=== PATIENT | male | born 1955 | race Caucasian/White ===

== ENCOUNTER 2022-05-27 13:13 | Outpatient (REF) | payer OTHER, SELFPAY ==
--- NOTE | 2022-05-27 13:25 | ECG_ITS ---
Test Reason : f33.2 Blood Pressure : / mmHG Vent. Rate : 070 BPM Atrial Rate : 070 BPM P-R Int : 200 ms QRS Dur : 086 ms QT Int : 386 ms P-R-T Axes : 052 013 000 degrees QTc Int : 416 ms Normal sinus rhythm Inferior infarct , age undetermined Abnormal ECG No previous ECGs available Referred By: Vinny Padron Electronically Signed By:STACY WASHINGTON
[2022-05-27 13:28] LABS: MANUAL DIFF FLAG NO
[2022-05-27 13:56] LABS: Basophils Percent Auto 0.5 % (0-2); Eosinophils Absolute Auto 0.1 X10*3/uL (0.0-0.4); Eosinophils Percent Auto 0.9 % (0-4); Hematocrit 45.9 % (42.0-52.0); Hemoglobin 15.6 g/dl (14.0-18.0); Imm Gran Abs Auto 0.02 X10*3/uL (0.00-0.03); Imm Gran Pct Auto 0.4 % (0.0-0.4); Lymphocytes Absolute Auto 1.6 X10*3/uL (1.2-4.9); Lymphocytes Percent Auto 28.1 % (20-40); Mean Corpuscular Hemoglobin 30.4 pg (27.0-33.0); Mean Corpuscular Volume 89.3 fL (80.0-98.0); Mean Platelet Volume 10.2 fL (9.4-12.4); Monocytes Absolute Auto 0.5 X10*3/uL (0.1-1.2); Monocytes Percent Auto 8.4 % (2-11); Neutrophils Absolute Auto 3.5 x10*3/uL (2.0-8.3); Neutrophils Percent Auto 61.7 % (45-73); Platelet Count 242 X10*3/uL (160-400); Red Blood Count 5.14 X10*6/uL (4.60-5.80); Red Cell Distribution Width 13.1 % (11.0-16.0); White Blood Count 5.6 X10*3/uL (4.8-10.8)
[2022-05-27 14:15] LABS: Alanine Aminotransferase 28 U/L (0-40); Albumin Level 4.2 g/dL (3.5-5.0); Alkaline Phosphatase 107 U/L (39-117); Anion Gap 16 (12-20); Aspartate Amino Transferase 21 U/L (5-37); Bilirubin Total 0.4 mg/dL (0.0-1.0); Blood Urea Nitrogen 13 mg/dL (9-16); Calcium 9.3 mg/dL (8.4-10.2); Carbon Dioxide 24 mmol/L (22-29); Chloride 105 mmol/L (96-108); Estimated Glomerular Filt Rate > 60; Glucose Random 89 mg/dL (60-115); Potassium 4.5 mmol/L (3.3-5.1); Sodium 140 mmol/L (135-145); Total Protein 7.3 g/dL (6.5-8.0)
[2022-05-27 14:35] LABS: Thyroid Stimulating Hormone 4.07 uIU/mL (0.32-4.0)
[2022-05-27 14:49] LABS: Folate 6.3 ng/mL (> or = 4.0); Vitamin B12 269 pg/mL (200-900)
== END 2022-05-27 13:14 | disposition home or self-care (01) ==
LOC: HO.LAB 13:13
PROVIDERS: PCP Family Medicine; Visit Provider Psychiatry & Neurology Psychiatry
DX: Z01.818 Encounter for other preprocedural examination (principal); F33.2 Major depressive disorder, recurrent severe without psychotic features
CPT/HCPCS: 36415; 80053; 82607; 82746; 84443; 85025; 93005

== ENCOUNTER 2022-06-17 05:59 | Day surgery (SDC) | payer OTHER, SELFPAY ==
[2022-06-17 06:45] LABS: COVID-19 Test Negative (Negative); IDNOW Serial# 16C4AD1C
[2022-06-17 06:58] VITALS: BP 130/77; PULSE 59; RESP 17; TEMP 36.4; O2SAT 98; BMI 37.5
--- NOTE | 2022-06-17 07:02 | P.CONAN_ITS ---
FORMERLY [facility], [facility] Past Medical History Medical History (Updated 06/16/22 @ 15:19 by Isis Eng RN) Coronary arteriosclerosis Deep vein thrombosis Diastolic dysfunction Hyperlipidemia Inflammatory spondylopathy Malignant melanoma Moderate recurrent major depression Morbid obesity Myocardial infarction Peripheral venous insufficiency Prediabetes Pulmonary embolism Resting tremor Tobacco abuse Family History Family history of problems with anesthesia: No Surgical History Surgical History (Updated 06/16/22 @ 15:22 by Isis Eng RN) H/O colonoscopy H/O hernia repair History of Problems with Anesthesia: No Social History Social History Advance Directives: No Advance Directives Information Provided: Yes Meds Allergies Allergy/AdvReac Type Severity Reaction Status Date / Time rosuvastatin [From Crestor] AdvReac Muscle Pain Verified 06/16/22 15:15 Home Medications Medication Instructions Recorded Confirmed Last Taken Type bupropion HCl 300 mg 24 hr tablet, 1 tab PO DAILY 06/16/22 06/16/22 Unknown History extended release citalopram 20 mg tablet 1.5 tab PO DAILY 06/16/22 06/16/22 Unknown History gabapentin 300 mg capsule 300 mg PO BEDTIME 06/16/22 06/16/22 Unknown History Exam Exam Date and Time: June 17, 2022 0702 Height,Weight and Vital Signs: Height 6 ft 3 in Weight 136.078 kg Last Vital Signs Temp 97.5 F 06/17/22 06:58 Pulse 59 06/17/22 06:58 Resp 17 06/17/22 06:58 BP 130/77 06/17/22 06:58 Pulse Ox 98 06/17/22 06:58 O2 Del Method 06/17/22 06:58 Pertinent Lab Results Pertinent Lab Results: Laboratory Tests 06/17/22 06:20 COVID-19 ([facility]) Negative COVID-19 Clin Com See Note Airway Mallampati Class: III (Narrow palate) TM Dist: >3cm Neck ROM: Full Heart: rrr Lungs: cta Assessment and Plan Assessment Anesthesia Assessment: Anesthesia Plan Discussed and Chart Reviewed Final Anesthetic Review Family History of Problems with Anesthesia: No History of Problems with Anesthesia: No NPO: Yes ASA Class: III Final Preanesthetic Review: No Changes in Pt Med Stat, Meds/Allgs Chart Reviewed and Consent Obtained/Reviewed Patient Risk: Intermediate Procedure Risk: Intermediate Anesthetic Plan Anesthetic Plan: GA Disposition: Standard PACU
--- NOTE | 2022-06-17 08:00 | MHC.SHP ---
Pre-Procedural Eval Section A Date of Service: 06/17/22 Changes since office visit: Yes Patient answered all questions; No Cold of Flu in the past 2 weeks, No New Medical Problems and No Changes in Medication The History & Physical has been completed within 30 days and I have reviewed it.: Yes Section B Chief Complaint: depression Allergies: Allergies Allergy/AdvReac Type Severity Reaction Status Date / Time rosuvastatin [From Crestor] AdvReac Muscle Pain Verified 06/16/22 15:15 Plan I have reviewed the history and physical and performed a pertinent physical examination on my patient. No changes have occurred unless specified.
--- NOTE | 2022-06-17 08:23 | HO.ECTPROC ---
ECT Procedure Note Diagnosis/Treatment Date of Service: 06/17/22 Diagnosis: Major Depressive Disorder Current Treatment Number: 1 Treatment: Series Interval Clinical Notes: Patient eager to have ECT seems and more relaxed spirits ECT Settings Device: THYMATRON DGx Energy Percent: 100 Seizure Duration By EEG (in seconds): 50 Medications Administration General Anesthetic: Etomidate (18) Muscle Relaxant: Succinylcholine Ancillary Medications Analgesics: Torodol - Pre ECT
--- NOTE | 2022-06-17 08:27 | ECG_ITS ---
Test Reason : htn pvc Blood Pressure : / mmHG Vent. Rate : 093 BPM Atrial Rate : 093 BPM P-R Int : 218 ms QRS Dur : 096 ms QT Int : 354 ms P-R-T Axes : 056 009 -03 degrees QTc Int : 440 ms Sinus rhythm with 1st degree A-V block Inferior infarct (cited on or before 27-MAY-2022) Abnormal ECG When compared with ECG of 27-MAY-2022 13:35, MI interval has increased Referred By: Tapan Jacobo Electronically Signed By:STACY WASHINGTON
[2022-06-17 08:30] VITALS: BP 150/90; PULSE 92; RESP 16; TEMP 36.9; O2SAT 94
[2022-06-17 08:35] VITALS: BP 133/85; PULSE 89; RESP 16; O2SAT 96
[2022-06-17 08:45] VITALS: BP 139/91; PULSE 87; RESP 14; O2SAT 96
[2022-06-17 09:00] VITALS: BP 144/93; PULSE 92; RESP 12; O2SAT 96
[2022-06-17 09:15] VITALS: BP 123/75; PULSE 80; RESP 16; TEMP 36.2; O2SAT 95
== END 2022-06-17 09:33 | disposition home or self-care (01) ==
PROVIDERS: PCP Family Medicine; Visit Provider Psychiatry & Neurology Psychiatry
PROC: (CPT 90870; principal; 2022-06-17 14:30)
DX: F33.3 Major depressive disorder, recurrent, severe with psychotic symptoms (principal); I25.10 Atherosclerotic heart disease of native coronary artery without angina pectoris; I10 Essential (primary) hypertension; E78.5 Hyperlipidemia, unspecified; R60.9 Edema, unspecified; Z86.718 Personal history of other venous thrombosis and embolism; Z79.01 Long term (current) use of anticoagulants; Z79.899 Other long term (current) drug therapy; Z88.8 Allergy status to other drugs, medicaments and biological substances; F17.210 Nicotine dependence, cigarettes, uncomplicated; Z20.822 Contact with and (suspected) exposure to COVID-19
CPT/HCPCS: 87635; 90870; 93005; J0330; J1885; J2405

== ENCOUNTER 2022-06-19 07:50 | Day surgery (SDC) | payer OTHER, SELFPAY ==
[2022-06-19] VITALS (7 sets, daily range): BP systolic 113–150; BP diastolic 79–87; PULSE 62–82; RESP 14–20; TEMP 36.1–36.2; O2SAT 92–98; BMI 38.1
--- NOTE | 2022-06-19 08:51 | P.CONAN_ITS ---
[facility] Past Medical History Medical History Coronary arteriosclerosis Deep vein thrombosis Diastolic dysfunction Hyperlipidemia Inflammatory spondylopathy Malignant melanoma Moderate recurrent major depression Morbid obesity Myocardial infarction Peripheral venous insufficiency Prediabetes Pulmonary embolism Resting tremor Tobacco abuse Family History Family history of problems with anesthesia: No Surgical History Surgical History H/O colonoscopy H/O hernia repair History of Problems with Anesthesia: No Social History Social History Patient Tobacco Use Status: Current everyday Tobacco user Advance Directives: No Advance Directives Information Provided: Yes Meds Allergies Allergy/AdvReac Type Severity Reaction Status Date / Time rosuvastatin [From Crestor] AdvReac Muscle Pain Verified 06/16/22 15:15 Home Medications Medication Instructions Recorded Confirmed Last Taken Type bupropion HCl 300 mg 24 hr tablet, 1 tab PO DAILY 06/16/22 06/16/22 Unknown H istory extended release citalopram 20 mg tablet 1.5 tab PO DAILY 06/16/22 06/16/22 Unknown History gabapentin 300 mg capsule 300 mg PO BEDTIME 06/16/22 06/16/22 Unknown History Exam Exam Date and Time: June 19, 2022 0851 Height,Weight and Vital Signs: Height 6 ft 3 in Weight 138.346 kg Last Vital Signs Temp 97.1 F 06/19/22 08:19 Pulse 62 06/19/22 08:19 Resp 18 06/19/22 08:19 BP 150/79 H 06/19/22 08:19 Pulse Ox 98 06/19/22 08:19 O2 Del Method 06/19/22 08:19 Airway Mallampati Class: III TM Dist: >3cm Neck ROM: Limited Loose/Missing/Broken Teeth: No Heart: RRR Lungs: CTA Assessment and Plan Assessment Anesthesia Assessment: Anesthesia Plan Discussed Final Anesthetic Review Family History of Problems with Anesthesia: No History of Problems with Anesthesia: No NPO: Yes ASA Class: III Final Preanesthetic Review: Meds/Allgs Chart Reviewed, Consent Obtained/Reviewed and Anes Risks/Benef Reviewed Patient Risk: Intermediate Procedure Risk: Intermediate Anesthetic Plan Anesthetic Plan: GA Disposition: Standard PACU
[2022-06-19 08:52] LABS: COVID-19 Test Negative (Negative)
--- NOTE | 2022-06-19 09:32 | MHC.SHP ---
Pre-Procedural Eval Section A Date of Service: 06/19/22 The patient is an INPATIENT: No Changes since office visit: Yes Cold of Flu in the past 2 weeks, Yes New Medical Problems, Yes Changes in Medication and Yes Patient answered all questions The History & Physical has been completed within 30 days and I have reviewed it.: Yes Section B Chief Complaint: depression Allergies: Allergies Allergy/AdvReac Type Severity Reaction Status Date / Time rosuvastatin [From Crestor] AdvReac Muscle Pain Verified 06/16/22 15:15 Plan I have reviewed the history and physical and performed a pertinent physical examination on my patient. No changes have occurred unless specified.
--- NOTE | 2022-06-19 09:53 | HO.ECTPROC ---
ECT Procedure Note Diagnosis/Treatment Date of Service: 06/19/22 Diagnosis: Major Depressive Disorder Previous ECT Date: 06/17/22 Current Treatment Number: 2 Treatment: Series Interval Clinical Notes: The patient reported mild improvement of dysphoria after ECT yesterday. Today, he denies new symptoms, only mild headache after ECT. ECT Settings Device: THYMATRON DGx Electrode Placement: Right Unilateral Program/Pulse Width: 0.25 Energy Percent: 100 Seizure Duration By EEG (in seconds): 20 Medications Administration General Anesthetic: Etomidate Muscle Relaxant: Succinylcholine (120) Ancillary Medications Analgesics: Torodol - Pre ECT Anti-emetics: Zofran - Pre ECT Airway Management Airway Management: LMA Treatment Recommendations No Changes Recommended: No change Pt Tolerated Procedure w/o Issue: Yes
== END 2022-06-19 11:29 | disposition home or self-care (01) ==
LOC: HO.SSS 11:27
PROVIDERS: PCP Family Medicine; Visit Provider Psychiatry & Neurology Psychiatry
PROC: (CPT 90870; principal; 2022-06-19 10:00)
DX: F33.1 Major depressive disorder, recurrent, moderate (principal); I25.10 Atherosclerotic heart disease of native coronary artery without angina pectoris; I25.2 Old myocardial infarction; R73.03 Prediabetes; E66.01 Morbid (severe) obesity due to excess calories; Z79.899 Other long term (current) drug therapy; Z88.8 Allergy status to other drugs, medicaments and biological substances; Z72.0 Tobacco use; Z20.822 Contact with and (suspected) exposure to COVID-19
CPT/HCPCS: 87635; 90870

== ENCOUNTER 2022-06-19 07:53 | Day surgery (SDC) | payer OTHER, SELFPAY ==
[2022-06-22] VITALS (7 sets, daily range): BP systolic 107–165; BP diastolic 56–100; PULSE 68–95; RESP 16–22; TEMP 36.1–36.4; O2SAT 96–100; BMI 37.5
[2022-06-22 06:43] LABS: COVID-19 Test Negative (Negative)
--- NOTE | 2022-06-22 06:53 | HO.ANESPROP2 ---
FORMERLY [facility] Past Medical History Medical History Coronary arteriosclerosis Deep vein thrombosis Diastolic dysfunction Hyperlipidemia Inflammatory spondylopathy Malignant melanoma Moderate recurrent major depression Morbid obesity Myocardial infarction Peripheral venous insufficiency Prediabetes Pulmonary embolism Resting tremor Tobacco abuse Family History Family history of problems with anesthesia: No Surgical History Surgical History H/O colonoscopy H/O hernia repair History of Problems with Anesthesia: No Social History Social History Patient Tobacco Use Status: Current everyday Tobacco user Advance Directives: No Advance Directives Information Provided: Yes Meds Allergies Allergy/AdvReac Type Severity Reaction Status Date / Time rosuvastatin [From Crestor] AdvReac Muscle Pain Verified 06/16/22 15:15 Home Medications Medication Instructions Recorded Confirmed Last Taken Type bupropion HCl 300 mg 24 hr tablet, 1 tab PO DAILY 06/16/22 06/16/22 Unknown History extended release citalopram 20 mg tablet 1.5 tab PO DAILY 06/16/22 06/16/22 Unknown History gabapentin 300 mg capsule 300 mg PO BEDTIME 06/16/22 06/16/22 Unknown History Exam Exam Date and Time: June 22, 2022 0653 Height,Weight and Vital Signs: Height 6 ft 3 in Weight 136.078 kg Last Vital Signs Temp 97 F 06/22/22 06:39 Pulse 68 06/22/22 06:39 Resp 18 06/22/22 06:39 BP 130/81 06/22/22 06:39 Pulse Ox 98 06/22/22 06:39 O2 Del Method 06/22/22 06:39 Pertinent Lab Results Pertinent Lab Results: Laboratory Tests 06/22/22 06:18 COVID-19 ([facility]) Negative COVID-19 Clin Com See Note Airway Mallampati Class: III (Some caps location unknown) TM Dist: >3cm Neck ROM: Full Heart: rrr Lungs: cta Assessment and Plan Assessment Anesthesia Assessment: Anesthesia Plan Discussed and Chart Reviewed Final Anesthetic Review Family History of Problems with Anesthesia: No History of Problems with Anesthesia: No NPO: Yes ASA Class: III Final Preanesthetic Review: No Changes in Pt Med Stat, Meds/Allgs Chart Reviewed and Consent Obtained/Reviewed Patient Risk: Intermediate Procedure Risk: Intermediate Anesthetic Plan Anesthetic Plan: GA Disposition: Standard PACU
--- NOTE | 2022-06-22 07:18 | MHC.SHP ---
Pre-Procedural Eval Section A Date of Service: 06/22/22 The patient is an INPATIENT: No Changes since office visit: No Cold of Flu in the past 2 weeks, No New Medical Problems, No Changes in Medication and No Patient answered all questions The History & Physical has been completed within 30 days and I have reviewed it.: Yes Section B Chief Complaint: depression Allergies: Allergies Allergy/AdvReac Type Severity Reaction Status Date / Time rosuvastatin [From Crestor] AdvReac Muscle Pain Verified 06/16/22 15:15 Plan I have reviewed the history and physical and performed a pertinent physical examination on my patient. No changes have occurred unless specified.
--- NOTE | 2022-06-22 07:34 | HO.ECTPROC ---
ECT Procedure Note Diagnosis/Treatment Date of Service: 06/22/22 Diagnosis: Major Depressive Disorder Previous ECT Date: 06/19/22 Current Treatment Number: 3 Treatment: Series Interval Clinical Notes: The patient has not noticed any changes on his mental status after the ECT of Wednesday. He denies headaches after the last ECT. his psychiatrist noticed involuntary tremors on right hand for the last months, it does not seems to worse, could be benign tremors, we will ask Neurology ECT Settings Device: THYMATRON DGx Electrode Placement: Right Unilateral Program/Pulse Width: 0.50 Energy Percent: 100 Seizure Duration By EEG (in seconds): 55 By Motor Observation (in seconds): 35 Medications Administration General Anesthetic: Etomidate Muscle Relaxant: Succinylcholine (120) Ancillary Medications Analgesics: Torodol - Pre ECT Anti-emetics: Zofran - Pre ECT Miscillaneous Medications: Propofol Airway Management Airway Management: Bag Mask Ventilation Treatment Recommendations No Changes Recommended: No change Notes: The patient desaturated last ECT but now, no problems Pt Tolerated Procedure w/o Issue: Yes
== END 2022-06-22 09:09 | disposition home or self-care (01) ==
PROVIDERS: PCP Family Medicine; Visit Provider Psychiatry & Neurology Psychiatry
PROC: (CPT 90870; principal; 2022-06-22 07:00)
DX: F33.1 Major depressive disorder, recurrent, moderate (principal); R25.1 Tremor, unspecified; I25.10 Atherosclerotic heart disease of native coronary artery without angina pectoris; I10 Essential (primary) hypertension; E78.5 Hyperlipidemia, unspecified; R60.0 Localized edema; I86.8 Varicose veins of other specified sites; Z86.718 Personal history of other venous thrombosis and embolism; Z79.01 Long term (current) use of anticoagulants; Z79.82 Long term (current) use of aspirin; Z79.899 Other long term (current) drug therapy; Z88.8 Allergy status to other drugs, medicaments and biological substances; Z20.822 Contact with and (suspected) exposure to COVID-19
CPT/HCPCS: 87635; 90870; J0330; J1885; J2250; J2405

== ENCOUNTER 2022-06-24 05:58 | Day surgery (SDC) | payer OTHER, SELFPAY ==
[2022-06-24] VITALS (7 sets, daily range): BP systolic 104–134; BP diastolic 57–107; PULSE 73–101; RESP 12–20; TEMP 36.6–36.9; O2SAT 94–98; BMI 37.5
--- NOTE | 2022-06-24 06:40 | HO.ANESPROP2 ---
[facility] Past Medical History Medical History Coronary arteriosclerosis Deep vein thrombosis Diastolic dysfunction Hyperlipidemia Inflammatory spondylopathy Malignant melanoma Moderate recurrent major depression Morbid obesity Myocardial infarction Peripheral venous insufficiency Prediabetes Pulmonary embolism Resting tremor Tobacco abuse Family History Family history of problems with anesthesia: No Surgical History Surgical History H/O colonoscopy H/O hernia repair History of Problems with Anesthesia: No Social History Social History Patient Tobacco Use Status: Current everyday Tobacco user Advance Directives: No Advance Directives Information Provided: Yes Meds Allergies Allergy/AdvReac Type Severity Reaction Status Date / Time rosuvastatin [From Crestor] AdvReac Muscle Pain Verified 06/16/22 15:15 Home Medications Medication Instructions Recorded Confirmed Last Taken Type bupropion HCl 300 mg 24 hr tablet, 1 tab PO DAILY 06/16/22 06/16/22 Unknown History extended release citalopram 20 mg tablet 1.5 tab PO DAILY 06/16/22 06/16/22 Unknown History gabapentin 300 mg capsule 300 mg PO BEDTIME 06/16/22 06/16/22 Unknown History Exam Exam Date and Time: June 24, 2022 0640 Airway Mallampati Class: III TM Dist: >3cm Neck ROM: Full Heart: rrr Lungs: cta Assessment and Plan Assessment Anesthesia Assessment: Anesthesia Plan Discussed and Chart Reviewed Final Anesthetic Review Family History of Problems with Anesthesia: No History of Problems with Anesthesia: No NPO: Yes ASA Class: III Final Preanesthetic Review: No Changes in Pt Med Stat, Meds/Allgs Chart Reviewed and Consent Obtained/Reviewed Patient Risk: Intermediate Procedure Risk: Intermediate Anesthetic Plan Anesthetic Plan: GA Disposition: Standard PACU
[2022-06-24 06:42] LABS: COVID-19 Test Negative (Negative); IDNOW Serial# 16C4AD1C
--- NOTE | 2022-06-24 07:34 | MHC.SHP ---
Pre-Procedural Eval Section A Date of Service: 06/24/22 The patient is an INPATIENT: No Changes since office visit: Yes Patient answered all questions; No Cold of Flu in the past 2 weeks, No New Medical Problems and No Changes in Medication The History & Physical has been completed within 30 days and I have reviewed it.: Yes Section B Chief Complaint: depression Allergies: Allergies Allergy/AdvReac Type Severity Reaction Status Date / Time rosuvastatin [From Crestor] AdvReac Muscle Pain Verified 06/16/22 15:15 Plan I have reviewed the history and physical and performed a pertinent physical examination on my patient. No changes have occurred unless specified.
--- NOTE | 2022-06-24 08:00 | HO.ECTPROC ---
ECT Procedure Note Diagnosis/Treatment Date of Service: 06/24/22 Diagnosis: Major Depressive Disorder Previous ECT Date: 06/22/22 Current Treatment Number: 4 Treatment: Series Interval Clinical Notes: pt tolerating tx well no change in mood ECT Settings Device: THYMATRON DGx Electrode Placement: Bifrontal Program/Pulse Width: 0.50 Energy Percent: 100 Seizure Duration By EEG (in seconds): 59 Medications Administration General Anesthetic: Etomidate (18) Muscle Relaxant: Succinylcholine (100) Ancillary Medications Anti-emetics: Zofran - Pre ECT Miscillaneous Medications: Midazolam (2 mg) Airway Management Airway Management: LMA Treatment Recommendations Notes: pt had desaturation anesthesia has recommendations for next tx
== END 2022-06-24 09:14 | disposition home or self-care (01) ==
PROVIDERS: PCP Family Medicine; Visit Provider Psychiatry & Neurology Psychiatry
PROC: (CPT 90870; principal; 2022-06-24 07:00)
DX: F33.1 Major depressive disorder, recurrent, moderate (principal); R25.1 Tremor, unspecified; I25.10 Atherosclerotic heart disease of native coronary artery without angina pectoris; I10 Essential (primary) hypertension; E78.5 Hyperlipidemia, unspecified; R60.0 Localized edema; I86.8 Varicose veins of other specified sites; Z86.718 Personal history of other venous thrombosis and embolism; Z79.01 Long term (current) use of anticoagulants; Z79.82 Long term (current) use of aspirin; Z79.899 Other long term (current) drug therapy; Z20.822 Contact with and (suspected) exposure to COVID-19
CPT/HCPCS: 87635; 90870; J0330; J1885; J2250; J2405

== ENCOUNTER 2022-06-26 06:05 | Day surgery (SDC) | payer OTHER, SELFPAY ==
[2022-06-26] VITALS (7 sets, daily range): BP systolic 112–156; BP diastolic 60–99; PULSE 69–104; RESP 12–18; TEMP 36.3–36.6; O2SAT 94–98
[2022-06-26 06:39] LABS: COVID-19 Test Negative (Negative)
--- NOTE | 2022-06-26 06:51 | P.CONAN_ITS ---
[facility] Past Medical History Medical History Coronary arteriosclerosis Deep vein thrombosis Diastolic dysfunction Hyperlipidemia Inflammatory spondylopathy Malignant melanoma Moderate recurrent major depression Morbid obesity Myocardial infarction Peripheral venous insufficiency Prediabetes Pulmonary embolism Resting tremor Tobacco abuse Family History Family history of problems with anesthesia: No Surgical History Surgical History H/O colonoscopy H/O hernia repair History of Problems with Anesthesia: No Social History Social History Patient Tobacco Use Status: Current everyday Tobacco user Advance Directives: No Advance Directives Information Provided: Yes Meds Allergies Allergy/AdvReac Type Severity Reaction Status Date / Time rosuvastatin [From Crestor] AdvReac Muscle Pain Verified 06/16/22 15:15 Home Medications Medication Instructions Recorded Confirmed Last Taken Type bupropion HCl 300 mg 24 hr tablet, 1 tab PO DAILY 06/16/22 06/16/22 Unknown H istory extended release citalopram 20 mg tablet 1.5 tab PO DAILY 06/16/22 06/16/22 Unknown History gabapentin 300 mg capsule 300 mg PO BEDTIME 06/16/22 06/16/22 Unknown History Exam Exam Date and Time: June 26, 2022 0651 Height,Weight and Vital Signs: Height 6 ft 3 in Last Vital Signs Temp 97.3 F 06/26/22 06:39 Pulse 69 06/26/22 06:39 Resp 12 06/26/22 06:39 BP 133/73 06/26/22 06:39 Pulse Ox 97 06/26/22 06:39 O2 Del Method 06/26/22 06:39 Pertinent Lab Results Pertinent Lab Results: Laboratory Tests 06/26/22 06:15 COVID-19 ([facility]) Negative COVID-19 Clin Com See Note Airway Mallampati Class: III TM Dist: >3cm Neck ROM: Full Heart: rrr Lungs: cta Assessment and Plan Assessment Anesthesia Assessment: Anesthesia Plan Discussed and Chart Reviewed Final Anesthetic Review Family History of Problems with Anesthesia: No History of Problems with Anesthesia: No NPO: Yes ASA Class: III Final Preanesthetic Review: No Changes in Pt Med Stat, Meds/Allgs Chart Reviewed and Consent Obtained/Reviewed Patient Risk: Intermediate Procedure Risk: Intermediate Anesthetic Plan Anesthetic Plan: GA Disposition: Standard PACU
--- NOTE | 2022-06-26 07:15 | MHC.SHP ---
Pre-Procedural Eval Section A Date of Service: 06/26/22 The patient is an INPATIENT: No Changes since office visit: Yes Patient answered all questions; No Cold of Flu in the past 2 weeks, No New Medical Problems and No Changes in Medication The History & Physical has been completed within 30 days and I have reviewed it.: Yes Section B Chief Complaint: depression Allergies: Allergies Allergy/AdvReac Type Severity Reaction Status Date / Time rosuvastatin [From Crestor] AdvReac Muscle Pain Verified 06/16/22 15:15 Plan I have reviewed the history and physical and performed a pertinent physical examination on my patient. No changes have occurred unless specified.
--- NOTE | 2022-06-26 07:37 | HO.ECTPROC ---
ECT Procedure Note Diagnosis/Treatment Date of Service: 06/28/22 Diagnosis: Major Depressive Disorder Current Treatment Number: 5 Treatment: Series ECT Settings Device: THYMATRON DGx Electrode Placement: Bifrontal Program/Pulse Width: 0.50 Energy Percent: 100 Seizure Duration By EEG (in seconds): 61 Medications Administration General Anesthetic: Etomidate (18) Muscle Relaxant: Succinylcholine (100) Ancillary Medications Analgesics: Torodol - Pre ECT Anti-emetics: Zofran - Pre ECT Cardiovascular Medications: Glycopyrrolate Miscillaneous Medications: Propofol Airway Management Airway Management: LMA Treatment Recommendations Electrode Placement: Rt temporal/ Lt frontal Program/Pulse Width: 0.50 Energy Percent: 100 Notes: needed lma Monitor response to BF glyco used Pt Tolerated Procedure w/o Issue: No
== END 2022-06-26 08:55 | disposition home or self-care (01) ==
PROVIDERS: PCP Family Medicine; Visit Provider Psychiatry & Neurology Psychiatry
PROC: (CPT 90870; principal; 2022-06-26 07:30)
DX: F33.1 Major depressive disorder, recurrent, moderate (principal); R73.03 Prediabetes; I25.10 Atherosclerotic heart disease of native coronary artery without angina pectoris; I10 Essential (primary) hypertension; E78.5 Hyperlipidemia, unspecified; I82.409 Acute embolism and thrombosis of unspecified deep veins of unspecified lower extremity; Z79.899 Other long term (current) drug therapy; Z88.8 Allergy status to other drugs, medicaments and biological substances; Z20.822 Contact with and (suspected) exposure to COVID-19; F17.200 Nicotine dependence, unspecified, uncomplicated
CPT/HCPCS: 87635; 90870; J0330; J1885; J2250; J2405

== ENCOUNTER 2022-06-29 05:56 | Day surgery (SDC) | payer OTHER, SELFPAY ==
[2022-06-29] VITALS (9 sets, daily range): BP systolic 132–160; BP diastolic 71–108; PULSE 75–130; RESP 12–20; TEMP 36.3–37.2; O2SAT 93–100; BMI 37.5
[2022-06-29 06:50] LABS: COVID-19 Test Negative (Negative)
--- NOTE | 2022-06-29 07:01 | HO.ANESPROP2 ---
[facility] Past Medical History Medical History Coronary arteriosclerosis Deep vein thrombosis Diastolic dysfunction Hyperlipidemia Inflammatory spondylopathy Malignant melanoma Moderate recurrent major depression Morbid obesity Myocardial infarction Peripheral venous insufficiency Prediabetes Pulmonary embolism Resting tremor Tobacco abuse Family History Family history of problems with anesthesia: No Surgical History Surgical History H/O colonoscopy H/O hernia repair History of Problems with Anesthesia: No Social History Social History Patient Tobacco Use Status: Current everyday Tobacco user Advance Directives: No Advance Directives Information Provided: Yes Meds Allergies Allergy/AdvReac Type Severity Reaction Status Date / Time rosuvastatin [From Crestor] AdvReac Muscle Pain Verified 06/16/22 15:15 Home Medications Medication Instructions Recorded Confirmed Last Taken Type bupropion HCl 300 mg 24 hr tablet, 1 tab PO DAILY 06/16/22 06/16/22 Unknown History extended release citalopram 20 mg tablet 1.5 tab PO DAILY 06/16/22 06/16/22 Unknown History gabapentin 300 mg capsule 300 mg PO BEDTIME 06/16/22 06/16/22 Unknown History Exam Exam Date and Time: June 29, 2022 0701 Height,Weight and Vital Signs: Height 6 ft 3 in Weight 136.078 kg Last Vital Signs Temp 97.3 F 06/29/22 06:33 Pulse 75 06/29/22 06:33 Resp 20 06/29/22 06:33 BP 140/84 H 06/29/22 06:33 Pulse Ox 100 06/29/22 06:33 O2 Del Method 06/29/22 06:33 Pertinent Lab Results Pertinent Lab Results: Laboratory Tests 06/29/22 06:19 COVID-19 ([facility]) Negative COVID-19 Clin Com See Note Airway Mallampati Class: III TM Dist: >3cm Neck ROM: Full Heart: rrr Lungs: cta Assessment and Plan Assessment Anesthesia Assessment: Anesthesia Plan Discussed and Chart Reviewed Final Anesthetic Review Family History of Problems with Anesthesia: No History of Problems with Anesthesia: No ASA Class: III Final Preanesthetic Review: No Changes in Pt Med Stat, Meds/Allgs Chart Reviewed and Consent Obtained/Reviewed Patient Risk: Intermediate Procedure Risk: Intermediate Anesthetic Plan Anesthetic Plan: GA Disposition: Standard PACU
--- NOTE | 2022-06-29 08:39 | HO.ECTPROC ---
ECT Procedure Note Diagnosis/Treatment Date of Service: 06/29/22 Diagnosis: Major Depressive Disorder Previous ECT Date: 06/24/22 Current Treatment Number: 5 Treatment: Series Interval Clinical Notes: The patient reported no improvement of depression, still dysphoric, reported mild confusion after procedure. ECT Settings Device: THYMATRON DGx Electrode Placement: Bitemporal Program/Pulse Width: 0.50 Energy Percent: 100 Seizure Duration By EEG (in seconds): 87 By Motor Observation (in seconds): 56 Medications Administration General Anesthetic: Etomidate (18) Muscle Relaxant: Succinylcholine (100) Ancillary Medications Anti-emetics: Zofran - Pre ECT Cardiovascular Medications: Glycopyrrolate Miscillaneous Medications: Midazolam Airway Management Airway Management: LMA Treatment Recommendations No Changes Recommended: No change Pt Tolerated Procedure w/o Issue: Yes
--- NOTE | 2022-06-29 09:09 | ECG_ITS ---
Test Reason : rhythm check, s/p ect Blood Pressure : / mmHG Vent. Rate : 110 BPM Atrial Rate : 110 BPM P-R Int : 180 ms QRS Dur : 086 ms QT Int : 340 ms P-R-T Axes : 040 019 018 degrees QTc Int : 460 ms Sinus tachycardia Inferior infarct (cited on or before 27-MAY-2022) Abnormal ECG When compared with ECG of 17-JUN-2022 08:27, HI interval has decreased Nonspecific T wave abnormality has replaced inverted T waves in Inferior leads Heart rate has increased Referred By: Ben Rodney Electronically Signed By:STACY WASHINGTON
== END 2022-06-29 10:56 | disposition home or self-care (01) ==
PROVIDERS: PCP Family Medicine; Visit Provider Psychiatry & Neurology Psychiatry
PROC: (CPT 90870; principal; 2022-06-29 07:00)
DX: F33.1 Major depressive disorder, recurrent, moderate (principal); R73.03 Prediabetes; I25.10 Atherosclerotic heart disease of native coronary artery without angina pectoris; I10 Essential (primary) hypertension; E78.5 Hyperlipidemia, unspecified; I82.409 Acute embolism and thrombosis of unspecified deep veins of unspecified lower extremity; Z79.899 Other long term (current) drug therapy; Z88.8 Allergy status to other drugs, medicaments and biological substances; Z20.822 Contact with and (suspected) exposure to COVID-19; F17.200 Nicotine dependence, unspecified, uncomplicated
CPT/HCPCS: 87635; 90870; 93005; J0330; J1885; J2250; J2405